=== PATIENT | female | born 1960 | race Caucasian/White ===

== ENCOUNTER 2016-11-30 08:39 | Emergency (ER) | payer BC, OTHER ==
[~2016-11-30] VITALS: Ht 180.3 cm; Wt 116.5 kg
[~2016-11-30 08:39] MED LIST: LANTUS2P SQ; LEVO.1 PO; LISI-360 PO; NOVOLOGP2 SQ
[2016-11-30 08:45] VITALS: BP 139/73; PULSE 75; RESP 16; TEMP 98.6; O2SAT 98
[2016-11-30] MEDS ORDERED: SODIUM CHLORIDE 0.9% FLUSH 10 ML FLUSH IVF PRN (09:00)
[2016-11-30] MEDS ORDERED: SODIUM CHLOR 0.9% 1000 ML INJ 1,000 ML IV ONE (09:00)
[2016-11-30 09:03] VITALS: O2SAT 97
--- NOTE | 2016-11-30 09:32 | RADHPO ---
EXAM DATE/TIME: 11/30/2016 09:10 [facility] COMPARISON: CHEST SINGLE AP, March 06, 2015, 22:30. INDICATIONS : Short of breath, left arm/hand numbness. MEDICAL HISTORY : Hypertension. Myocardial infarction. Diabetes mellitus type II. Thyriod disease. TIA. Sleep apnea . SURGICAL HISTORY : Tonsillectomy. Cholecystectomy. Cardiac cath. Bilateral rotator cuff . ENCOUNTER: Initial ACUITY: 1 day PAIN SCORE: 0/10 LOCATION: chest FINDINGS: A single view of the chest demonstrates the lungs to be symmetrically aerated without evidence of mas s, infiltrate or effusion. The cardiomediastinal contours are unremarkable. Osseous structures are intact. CONCLUSION: No acute disease. Stephen Elizabeth Jr., MD on November 30, 2016 at 9:30 Board Certified Radiologist. This report was verified electronically.
[2016-11-30 09:52] LABS: AUTOMATED NEUTROPHIL # 3.6 TH/MM3 (1.8-7.7); BASOPHIL # 0.2 TH/MM3 (0-0.2); BASOPHIL % 2.7 % (0.0-2.0); EOSINOPHIL # 0.2 TH/MM3 (0-0.4); EOSINOPHIL % 3.2 % (0.0-4.0); HEMATOCRIT 38.7 % (35.0-46.0); HEMO FLAGS DIFF FINAL; LYMPH % 33.3 % (9.0-44.0); LYMPHOCYTE # 2.3 TH/MM3 (1.0-4.8); MEAN CELL VOLUME 79.4 FL (80.0-100.0); MEAN CORPUSCULAR HEMOGLOBIN 26.8 PG (27.0-34.0); MEAN CORPUSCULAR HGB CONC 33.8 % (32.0-36.0); MONO % 7.1 % (0.0-8.0); NEUT % 53.7 % (16.0-70.0); PLATELET COUNT 276 TH/MM3 (150-450); RED BLOOD COUNT 4.87 MIL/MM3 (4.00-5.30); RED CELL DISTRIBUTION WIDTH 12.8 % (11.6-17.2); WHITE BLOOD COUNT 6.8 TH/MM3 (4.0-11.0)
[2016-11-30 09:59] LABS: CHLORIDE 103 MEQ/L (98-107); POTASSIUM 4.1 MEQ/L (3.5-5.1); SODIUM (NA) 139 MEQ/L (136-145)
[2016-11-30 10:01] LABS: BLOOD, URINE NEG (NEG); GLUCOSE,URINE NEG (NEG); KETONE, URINE NEG (NEG); NITRITE,URINE NEG (NEG); PH, URINE 5.5 (5.0-8.5)
[2016-11-30 10:02] LABS: ANION GAP 6 MEQ/L (5-15); BICARBONATE 29.9 MEQ/L (21.0-32.0); BLOOD UREA NITROGEN 12 MG/DL (7-18)
[2016-11-30 10:03] LABS: APTT (PATIENT) 25.5 SEC (24.3-30.1); INTERNATIONAL NORMALIZED RATIO 0.9 RATIO; PROTHROMBIN TIME - PATIENT 10.2 SEC (9.8-11.6)
[2016-11-30 10:05] LABS: COMMENT (UR) CULT NOT INDICATED; CULTURE IF INDICATED CULT NOT INDICATED; METHOD OF COLLECTION CLEAN CATCH; SQUAMOUS EPITHELIAL CELL URINE 0-5 /hpf (0-5); URINE COLOR YELLOW (YELLW/STRAW); WBC, URINE 0-2 /hpf (0-5)
[2016-11-30 10:05] LABS: ALT (GPT) 22 U/L (10-53); GLOMERULAR FILTRATION RATE 72 ML/MIN (>89)
[2016-11-30 10:06] LABS: AST (GOT) 11 U/L (15-37); TOTAL BILIRUBIN ADULT 0.5 MG/DL (0.2-1.0)
[2016-11-30 10:08] LABS: ALKALINE PHOSPHATASE 52 U/L (45-117)
[2016-11-30 10:12] LABS: CREATINE KINASE 72 U/L (26-192)
[2016-11-30 10:26] VITALS: BP 140/80; PULSE 88; RESP 16; O2SAT 100
--- NOTE | 2016-11-30 10:57 | RADHPO ---
EXAM DATE/TIME: 11/30/2016 10:27 [facility] COMPARISON: No previous studies available for comparison. INDICATIONS : Cephalgia. Dizziness. Left arm numbness. Weakness. RADIATION DOSE: 67.43 CTDIvol (mGy) MEDICAL HISTORY : Cerebrovascular disease. Diabetes mellitus type 2. Myocardial infarction. SURGICAL HISTORY : Cholecystectomy. ENCOUNTER: Initial ACUITY: 1 day PAIN SCALE: 9/10 LOCATION: cranial TECHNIQUE: Multiple contiguous axial images were obtained of the head. Using automated exposure control and adj ustment of the mA and/or kV according to patient size, radiation dose was kept as low as reasonably a chievable to obtain optimal diagnostic quality images. FINDINGS: CEREBRUM: The ventricles are normal for age. No evidence of midline shift, mass lesion, hemorrhage or acute in farction. No extra-axial fluid collections are seen. POSTERIOR FOSSA: The cerebellum and brainstem are intact. The 4th ventricle is midline. The cerebellopontine angle i s unremarkable. EXTRACRANIAL: The visualized portion of the orbits is intact. SKULL: The calvaria is intact. No evidence of skull fracture. CONCLUSION: 1. No acute intracranial abnormality identified. Kevin Hdz MD on November 30, 2016 at 10:45 Board Certified Radiologist. This report was verified electronically.
[2016-11-30] MEDS ORDERED: ONDANSETRON HCL 4 MG/2 ML VIAL IV PUSH ONE (11:00)
[2016-11-30 11:06] VITALS: BP 136/76; PULSE 65; RESP 16; O2SAT 99
[2016-11-30] MEDS ORDERED: IOHEXOL 350 MG/ML 10 ML VIAL (for RAD DIAG) IV ONE (11:31)
--- NOTE | 2016-11-30 12:22 | RADHPO ---
EXAM DATE/TIME: 11/30/2016 11:01 [facility] COMPARISON: No previous studies available for comparison. INDICATIONS : Nausea, left flank pain and left arm numbness. IV CONTRAST: 90 cc Omnipaque 350 (iohexol) IV RADIATION DOSE: 23.08 CTDIvol (mGy) MEDICAL HISTORY : Hypertension. Diabetes mellitus type 2. SURGICAL HISTORY : Cholecystectomy. ENCOUNTER: Initial ACUITY: 1 day PAIN SCALE: 5/10 LOCATION: Left flank TECHNIQUE: Volumetric scanning was performed using a multi-row detector CT scanner. The data was post processed with a variety of visualization algorithms including full volume maximum intensity projection, multi -planar sliding thin slab reformation, curved planar reformation, and surface rendering techniques. Using automated exposure control and adjustment of the mA and/or kV according to patient size, radiat ion dose was kept as low as reasonably achievable to obtain optimal diagnostic quality images. FINDINGS: The lungs are clear. There is good visualization of the ascending and the descending aorta. There is mild dilatation of t he ascending aorta without dissection. There are no significant coronary calcifications. Descending aorta is unremarkable. There is symmetrical renal function. Abdominal aorta appears normal without dissection. Review of source data reveals a small enhancing mass in the dome of the liver measuring less than 1 c m that could be an incidental hemangioma. I have no prior studies for comparison. Spleen, pancreas, adrenals and kidneys are unremarkable. CONCLUSION: 1. There is no evidence for a dissection. 2. Small less than 1 cm enhancing mass dome of liver probably hemangioma. This needs a follow-up. F ollow up would be a CT scan without and with contrast in three months. Jarred Hdz MD FACR on November 30, 2016 at 11:46 Board Certified Radiologist. This report was verified electronically.
[2016-11-30 12:48] VITALS: BP 136/77; PULSE 68; RESP 16; O2SAT 100
--- NOTE | 2016-11-30 12:59 | PD ---
HPI Chief Complaint: GI Complaint Time Seen by Provider: 08:50 Travel History International Travel<30 days: No Contact w/Intl Traveler<30days: No Traveled to known affect area: No History of Present Illness HPI Patient is a 55-year-old female with history of diabetes and hypothyroidism with multiple complaints. Reports that she has not been feeling well since yesterday afternoon, reports that her left flank has been hurting her, reports that her left hand and arm feel funny, she reports that "i don't know, I just feel weird." Patient denies any fevers or chills, reports that she feels a little dizzy, denies any vision changes, or any headaches. Patient denies any chest pain or shortness of breath. Patient denies abdominal pain, denies dysuria, hematuria, urinary urgency or frequency. Patient with no recent travels or trips, reports, "i just don't feel good." PFSH Past Medical History Cancer: No Cardiovascular Problems: No Chest Pain: Yes Diabetes: Yes (Type 2) Patient Takes Glucophage: No Diminished Hearing: No Endocrine: Yes Genitourinary: No Headaches: Yes (massive headache for 5 days last year ? TIA) Hypertension: Yes Musculoskeletal: Yes Neurologic: No Psychiatric: No Reproductive: No Respiratory: No Immunizations Current: Yes Sleep Apnea: Yes Thyroid Disease: Yes Tetanus Vaccination: Unknown ?: Not Menopausal: Yes Past Surgical History Abdominal Surgery: Yes (gallbladder out last year) Cholecystectomy: Yes Oral Surgery: Yes (T&A) Pacemaker: No Tonsillectomy: Yes Other Surgery: Yes Social History Alcohol Use: No Tobacco Use: No Substance Use: No Allergies-Medications (Allergen,Severity, Reaction): Coded Allergies: *MDRO Multi-Drug Resistant Organism (Verified Allergy, Unknown, 11/30/16) Uncoded Allergies: ADHEVIE "SURGICAL " TAPE (Allergy, Intermediate, RASH,ITCHING,SKIN IRRITATION, 06/07/12) Reported Meds & Prescriptions Reported Meds & Active Scripts Active Reported Lantus (Insulin Glargine) 100 Units/Ml Inj 24 Unit SQ HS Synthroid 100 mcg (Levothyroxine Sodium) 100 Mcg Tab 112 Mcg PO DAILY Lisinopril 10 mg (Lisinopril) 10 Mg Tab 10 Mg PO DAILY Novolog (Insulin Aspart) 100 Units/Ml Inj 10 Units SQ TIDAC Sliding Scale As Directed. Review of Systems General / Constitutional: No: Fever Eyes: No: Visual changes HENT: No: Headaches Cardiovascular: No: Chest Pain or Discomfort Respiratory: No: Shortness of Breath Gastrointestinal: Positive: Abdominal Pain, Other (left-sided flank pain) Genitourinary: No: Urgency, Dysuria Musculoskeletal: No: Pain Skin: No Rash Neurologic: Positive: Weakness, Dizziness, Paresthesia Psychiatric: No: Depression Endocrine: No: Polydipsia Hematologic/Lymphatic: No: Easy Bruising Physical Exam Narrative GENERAL: nad, nontoxic SKIN: Focused skin assessment warm/dry. HEAD: Atraumatic. Normocephalic. EYES: Pupils equal and round. No scleral icterus. No injection or drainage. ENT: No nasal bleeding or discharge. Mucous membranes pink and moist. NECK: Trachea midline. No JVD. CARDIOVASCULAR: Regular rate and rhythm. No murmur appreciated. RESPIRATORY: No accessory muscle use. Clear to auscultation. Breath sounds equal bilaterally. GASTROINTESTINAL: Abdomen soft, non-tender, nondistended. Hepatic and splenic margins not palpable. MUSCULOSKELETAL: No obvious deformities. No clubbing. No cyanosis. No edema. NEUROLOGICAL: Awake and alert. No obvious cranial nerve deficits. Motor grossly within normal limits. Normal speech. CN 2-12 grossly intact with no neurological deficits PSYCHIATRIC: Appropriate mood and affect; insight and judgment normal. Data Data Last Documented VS Vital Signs Date Time Temp Pulse Resp B/P Pulse Ox O2 Delivery O2 Flow Rate FiO2 11/30/16 12:48 68 16 136/77 100 Room Air 11/30/16 08:45 98.6 Orders Electrocardiogram (11/30/16 08:57) Prothrombin Time / Inr (Pt) (11/30/16 08:57) Act Partial Throm Time (Ptt) (11/30/16 08:57) Complete Blood Count With Diff (11/30/16 08:57) Comprehensive Metabolic Panel (11/30/16 08:57) Creatine Kinase (Cpk) (11/30/16 08:57) Troponin I (11/30/16 08:57) Urinalysis - C+S If Indicated (11/30/16 08:57) Ct Brain W/O Iv Contrast(Rout) (11/30/16 08:57) Chest, Single Ap (11/30/16 08:57) Ecg Monitoring (11/30/16 08:57) Iv Access Insert/Monitor (11/30/16 08:57) Oximetry (11/30/16 08:57) Blood Glucose (11/30/16 08:57) Sodium Chloride 0.9% Flush (Ns Flush) (11/30/16 09:00) Sodium Chlor 0.9% 1000 Ml Inj (Ns 1000 M (11/30/16 09:00) Cta Thor Abd Aorta W Iv C W3d (11/30/16 10:21) Ondansetron Inj (Zofran Inj) (11/30/16 11:00) Iohexol 350 Inj (Omnipaque 350 Inj) (11/30/16 11:31) Electrocardiogram (11/30/16 ) Labs Laboratory Tests Test 11/30/16 11/30/16 09:25 09:44 Urine Collection Type CLEAN CATCH Urine Color YELLOW Urine Turbidity CLEAR Urine pH 5.5 Urine Specific [place] 1.013 Urine Protein NEG mg/dL Urine Glucose (UA) NEG mg/dL Urine Ketones NEG mg/dL Urine Occult Blood NEG Urine Nitrite NEG Urine Bilirubin NEG Urine Leukocyte Esterase NEG Urine WBC 0-2 /hpf Urine Squamous Epithelial 0-5 /hpf Cells Microscopic Urinalysis Comment CULT NOT INDICATED Urine Collection Time 09:25 White Blood Count 6.8 TH/MM3 Red Blood Count 4.87 MIL/MM3 Hemoglobin 13.1 GM/DL Hematocrit 38.7 % Mean Corpuscular Volume 79.4 FL Mean Corpuscular Hemoglobin 26.8 PG Mean Corpuscular Hemoglobin 33.8 % Concent Red Cell Distribution Width 12.8 % Platelet Count 276 TH/MM3 Mean Platelet Volume 7.9 FL Neutrophils (%) (Auto) 53.7 % Lymphocytes (%) (Auto) 33.3 % Monocytes (%) (Auto) 7.1 % Eosinophils (%) (Auto) 3.2 % Basophils (%) (Auto) 2.7 % Neutrophils # (Auto) 3.6 TH/MM3 Lymphocytes # (Auto) 2.3 TH/MM3 Monocytes # (Auto) 0.5 TH/MM3 Eosinophils # (Auto) 0.2 TH/MM3 Basophils # (Auto) 0.2 TH/MM3 CBC Comment DIFF FINAL Differential Comment Prothrombin Time 10.2 SEC Prothromb Time International 0.9 RATIO Ratio Activated Partial 25.5 SEC Thromboplast Time Sodium Level 139 MEQ/L Potassium Level 4.1 MEQ/L Chloride Level 103 MEQ/L Carbon Dioxide Level 29.9 MEQ/L Anion Gap 6 MEQ/L Blood Urea Nitrogen 12 MG/DL Creatinine 0.82 MG/DL Estimat Glomerular Filtration 72 ML/MIN Rate Random Glucose 196 MG/DL Calcium Level 8.6 MG/DL Total Bilirubin 0.5 MG/DL Aspartate Amino Transf 11 U/L (AST/SGOT) Alanine Aminotransferase 22 U/L (ALT/SGPT) Alkaline Phosphatase 52 U/L Total Creatine Kinase 72 U/L Troponin I LESS THAN 0.02 NG/ML Total Protein 6.5 GM/DL Albumin 3.3 GM/DL MDM Medical Decision Making Medical Screen Exam Complete: Yes Emergency Medical Condition: Yes Interpretation(s) EKG at 0856: Normal sinus rhythm at 71 beats for minute, QT/QTc 406/425, no acute ST or T-wave changes Vital Signs Date Time Temp Pulse Resp B/P Pulse Ox O2 Delivery O2 Flow Rate FiO2 11/30/16 12:48 68 16 136/77 100 Room Air 11/30/16 11:06 65 16 136/76 99 Room Air 11/30/16 10:26 88 16 140/80 100 Room Air 11/30/16 09:03 97 Room Air 11/30/16 08:52 16 11/30/16 08:45 98.6 75 16 139/73 98 Laboratory Tests Test 11/30/16 11/30/16 09:25 09:44 Urine Collection Type CLEAN CATCH Urine Color YELLOW (YELLW/STRAW) Urine Turbidity CLEAR (CLEAR) Urine pH 5.5 (5.0-8.5) Urine Specific [place] 1.013 (1.002-1.035) Urine Protein NEG mg/dL (NEG-TRACE) Urine Glucose (UA) NEG mg/dL (NEG) Urine Ketones NEG mg/dL (NEG) Urine Occult Blood NEG (NEG) Urine Nitrite NEG (NEG) Urine Bilirubin NEG (NEG) Urine Leukocyte Esterase NEG (NEG) Urine WBC 0-2 /hpf (0-5) Urine Squamous Epithelial 0-5 /hpf (0-5) Cells Microscopic Urinalysis Comment CULT NOT INDICATED Urine Collection Time 09:25 White Blood Count 6.8 TH/MM3 (4.0-11.0) Red Blood Count 4.87 MIL/MM3 (4.00-5.30) Hemoglobin 13.1 GM/DL (11.6-15.3) Hematocrit 38.7 % (35.0-46.0) Mean Corpuscular Volume 79.4 FL (80.0-100.0) Mean Corpuscular Hemoglobin 26.8 PG (27.0-34.0) Mean Corpuscular Hemoglobin 33.8 % Concent (32.0-36.0) Red Cell Distribution Width 12.8 % (11.6-17.2) Platelet Count 276 TH/MM3 (150-450) Mean Platelet Volume 7.9 FL (7.0-11.0) Neutrophils (%) (Auto) 53.7 % (16.0-70.0) Lymphocytes (%) (Auto) 33.3 % (9.0-44.0) Monocytes (%) (Auto) 7.1 % (0.0-8.0) Eosinophils (%) (Auto) 3.2 % (0.0-4.0) Basophils (%) (Auto) 2.7 % (0.0-2.0) Neutrophils # (Auto) 3.6 TH/MM3 (1.8-7.7) Lymphocytes # (Auto) 2.3 TH/MM3 (1.0-4.8) Monocytes # (Auto) 0.5 TH/MM3 (0-0.9) Eosinophils # (Auto) 0.2 TH/MM3 (0-0.4) Basophils # (Auto) 0.2 TH/MM3 (0-0.2) CBC Comment DIFF FINAL Differential Comment Prothrombin Time 10.2 SEC (9.8-11.6) Prothromb Time International 0.9 RATIO Ratio Activated Partial 25.5 SEC Thromboplast Time (24.3-30.1) Sodium Level 139 MEQ/L (136-145) Potassium Level 4.1 MEQ/L (3.5-5.1) Chloride Level 103 MEQ/L (98-107) Carbon Dioxide Level 29.9 MEQ/L (21.0-32.0) Anion Gap 6 MEQ/L (5-15) Blood Urea Nitrogen 12 MG/DL (7-18) Creatinine 0.82 MG/DL (0.50-1.00) Estimat Glomerular Filtration 72 ML/MIN (>89) Rate Random Glucose 196 MG/DL (74-106) Calcium Level 8.6 MG/DL (8.5-10.1) Total Bilirubin 0.5 MG/DL (0.2-1.0) Aspartate Amino Transf 11 U/L (15-37) (AST/SGOT) Alanine Aminotransferase 22 U/L (10-53) (ALT/SGPT) Alkaline Phosphatase 52 U/L (45-117) Total Creatine Kinase 72 U/L (26-192) Troponin I LESS THAN 0.02 NG/ML (0.02-0.05) Total Protein 6.5 GM/DL (6.4-8.2) Albumin 3.3 GM/DL (3.4-5.0) Last Impressions Head CT 11/30/16856 Signed Impressions: Service Date/Time: Wednesday, November 30, 2016 10:27 - CONCLUSION: 1. No acute intracranial abnormality identified. Kevin Hdz MD Chest X-Ray 11/30/16856 Signed Impressions: Service Date/Time: Wednesday, November 30, 2016 09:10 - CONCLUSION: No acute disease. Stephen Elizabeth Jr., MD Differential Diagnosis Electrolyte abnormality, ACS, TIA, CVA, kidney stone, aortic dissection Narrative Course Patient is a 55-year-old female who presents to emergency room with complaints of not feeling well today. Reports feeling a little lightheaded and dizzy, reports paresthesias to her left hand, she also has been having some flank pain which radiates to her shoulder and her left scapula. Patient reports that symptoms began yesterday afternoon and has continued, reports that she has never had the symptoms in the past. Vital signs have been stable throughout her ER visit, labs are benign as well as her CT studies. Overall, her studies have been benign. Plan to discharge patient to home with outpatient follow-up for further workup of her symptoms. Signs and symptoms of when to return to the emergency room was reviewed patient in detail. Diagnosis Primary Impression: Arm paresthesia, left Additional Impression: Flank pain Patient Instructions: General Instructions Additional Instructions: Please provide patient with a copy of her lab work and studies at discharge Please follow up your primary care doctor and 1-2 days Return to emergency room if symptoms worsen or progress or return Return to the emergency room as needed Disposition: 01 DISCHARGE HOME Condition: Stable Meka Mitchell DO Nov 30, 2016 12:59
--- NOTE | 2016-11-30 14:48 | EKG ---
Date Performed: 11/30/2016 Time Performed: 08:56:24 PTAGE: 55 years EKG: Sinus rhythm Normal ECG PREVIOUS TRACING : 03/06/2015 22.30 Compared to the previous tracing, non-specific changes not noted DOCTOR: Jayson Valentin Interpretating Date/Time 11/30/2016 14:46:14
--- NOTE | 2016-12-01 13:55 | EKG ---
Date Performed: 11/30/2016 Time Performed: 12:59:40 PTAGE: 55 years EKG: Sinus rhythm Inferior T wave changes are nonspecific Borderline ECG PREVIOUS TRACING : 11/30/2016 08.56 Since previous tracing, no significant change noted DOCTOR: Trey Plasencia Interpretating Date/Time 12/01/2016 13:54:33
== END 2016-11-30 13:27 | disposition home or self-care (01) ==
LOC: PHED 08:39
DX: R20.2 Paresthesia of skin (principal); R10.9 Unspecified abdominal pain; R42 Dizziness and giddiness; R06.02 Shortness of breath; E03.9 Hypothyroidism, unspecified; E11.9 Type 2 diabetes mellitus without complications; I10 Essential (primary) hypertension; Z79.4 Long term (current) use of insulin; Z79.899 Other long term (current) drug therapy
CPT/HCPCS: 70450; 71010; 71275; 74174; 80053; 81001; 82550; 84484; 85025; 85610; 85730; 93005; 96361; 96374; 99285; J2405; J7030; Q9967

== ENCOUNTER 2017-02-13 17:11 | Emergency (ER) | payer OTHER ==
[~2017-02-13] VITALS: Ht 180.3 cm; Wt 110.0 kg
[2017-02-13 17:18] VITALS: BP 145/81; PULSE 70; RESP 16; TEMP 98.1; O2SAT 98
[2017-02-13] MEDS ORDERED: NOVALOG (17:27)
[2017-02-13] MEDS ORDERED: PERC7.5T13 PO (18:07)
--- NOTE | 2017-02-13 18:08 | PD ---
HPI Chief Complaint: Skin Problem Time Seen by Provider: 18:03 Travel History International Travel<30 days: No Contact w/Intl Traveler<30days: No Traveled to known affect area: No History of Present Illness HPI This 56-year-old female is complaining of painful rash. Last Monday she went to the [facility] emergency room. She had a spot on the back of her neck and one on the front of her chest. He was diagnosed with herpes zoster and started on Valtrex. She has been taking the Valtrex. She says the rash has spread and is painful. He does have a history of diabetes and her blood sugars have been elevated. PFSH Past Medical History Cancer: No Cardiovascular Problems: No Chest Pain: Yes Diabetes: Yes (Type 2) Patient Takes Glucophage: No Diminished Hearing: No Endocrine: Yes Genitourinary: No Headaches: Yes (massive headache for 5 days last year ? TIA) Hypertension: Yes Musculoskeletal: Yes Neurologic: No Psychiatric: No Reproductive: No Respiratory: No Immunizations Current: Yes Sleep Apnea: Yes Thyroid Disease: Yes Menopausal: Yes Past Surgical History Abdominal Surgery: Yes (gallbladder out last year) Cholecystectomy: Yes Oral Surgery: Yes (T&A) Pacemaker: No Tonsillectomy: Yes Other Surgery: Yes Social History Alcohol Use: No Tobacco Use: No Substance Use: No Allergies-Medications (Allergen,Severity, Reaction): Coded Allergies: *MDRO Multi-Drug Resistant Organism (Verified Allergy, Unknown, 02/13/17) Uncoded Allergies: ADHEVIE "SURGICAL " TAPE (Allergy, Intermediate, RASH,ITCHING,SKIN IRRITATION, 06/07/12) Reported Meds & Prescriptions Reported Meds & Active Scripts Active Reported [Novalog] Review of Systems General / Constitutional: No: Fever, Chills Eyes: No: Diploplia, Blurred Vision HENT: No: Headaches, Vertigo Cardiovascular: No: Chest Pain or Discomfort, Palpitations Respiratory: No: Cough, Shortness of Breath Gastrointestinal: No: Nausea, Vomiting Genitourinary: No: Urgency, Frequency Musculoskeletal: Positive: Pain Skin: Positive Rash Physical Exam Narrative GENERAL: Well developed female SKIN: Focused skin assessment warm/dry. There are patches of a erythematous rash with vesicular lesions on the right side of the upper chest anteriorly and posteriorly and also overlying the jaw on the right side of the face. The TMs are negative. Pupils are round and reactive and there is no conjunctival injection. HEAD: Atraumatic. Normocephalic. EYES: Pupils equal and round. No scleral icterus. No injection or drainage. ENT: No nasal bleeding or discharge. Mucous membranes pink and moist. NECK: Trachea midline. No JVD. CARDIOVASCULAR: Regular rate and rhythm. No murmur appreciated. RESPIRATORY: No accessory muscle use. Clear to auscultation. Breath sounds equal bilaterally. GASTROINTESTINAL: Abdomen soft, non-tender, nondistended. Hepatic and splenic margins not palpable. MUSCULOSKELETAL: No obvious deformities. No clubbing. No cyanosis. No edema. NEUROLOGICAL: Awake and alert. No obvious cranial nerve deficits. Motor grossly within normal limits. Normal speech. PSYCHIATRIC: Appropriate mood and affect; insight and judgment normal. Data Data Last Documented VS Vital Signs Date Time Temp Pulse Resp B/P (MAP) Pulse Ox O2 Delivery O2 Flow Rate FiO2 02/13/17 17:18 98.1 70 16 145/81 (102) 98 MDM Medical Decision Making Medical Screen Exam Complete: Yes Emergency Medical Condition: Yes Medical Record Reviewed: Yes Differential Diagnosis Differential includes shingles Narrative Course Rash is consistent with herpes zoster. The patient is having pain. She has not been able to take Lortab because it keeps her awake. I will write some Percocet and see if that helps. He is stable for discharge Diagnosis Primary Impression: Herpes zoster Qualified Codes: B02.9 - Zoster without complications Scripts Oxycodone-Acetaminophen (Percocet) 7.5-325 mg Tab 1 TAB PO Q4H Y for PAIN for 30 Days, TAB 0 Refills Prov: Moe Gonzalez MD 02/13/17 Disposition: 01 DISCHARGE HOME Condition: Stable Moe Gonzalez MD Feb 13, 2017 18:08
== END 2017-02-13 18:33 | disposition home or self-care (01) ==
LOC: PHEFT 17:11
DX: B02.9 Zoster without complications (principal)
CPT/HCPCS: 99283

== ENCOUNTER 2017-04-30 10:41 | Emergency (ER) | payer OTHER ==
[~2017-04-30] VITALS: Ht 180.3 cm; Wt 108.0 kg
[~2017-04-30 10:41] MED LIST changes: -LANTUS2P SQ; -LEVO.1 PO; -LISI-360 PO; +NOVALOG; -NOVOLOGP2 SQ; +PERC7.5T13 PO
[2017-04-30 10:44] VITALS: BP 157/106; PULSE 85; RESP 14; TEMP 98.1; O2SAT 97
[2017-04-30] MEDS ORDERED: SODIUM CHLORIDE 0.9% FLUSH 10 ML FLUSH IVF PRN (11:00)
[2017-04-30] MEDS ORDERED: ONDANSETRON HCL 4 MG/2 ML VIAL IV PUSH ONE (11:00)
[2017-04-30] MEDS ORDERED: SODIUM CHLOR 0.9% 1000 ML INJ 1,000 ML IV SCH (11:00)
--- NOTE | 2017-04-30 11:07 | PD ---
HPI Chief Complaint: Fall Time Seen by Provider: 10:55 Travel History International Travel<30 days: No Contact w/Intl Traveler<30days: No Traveled to known affect area: No History of Present Illness HPI Patient is a 56-year-old female who presents to emergency room after she fell at work on Monday. She reports that she tripped on a piece of cardboard which was on the ground, reports that she fell forward hitting her head on a table, while in the process of falling, she tried to protect her teeth and she ended up twisting her body and hurt her left lower back, right hip and her right shoulder. Patient reports no loss of consciousness, reports that she currently is not on any anticoagulants. Patient reports that she vomited 30 minutes after her fall, reports that she vomited another 2 times after she fell on Monday. Patient reports that her head feels "cloudy." Reports that she still feels nauseous. Patient reports pain to her right shoulder, right hip and right lower back. Patient with no chest pain or abdominal pain at this time, reports diffuse bruising throughout her body after her fall. PFSH Past Medical History Cancer: No Cardiovascular Problems: No Chest Pain: Yes Diabetes: Yes (TYPE 2) Diminished Hearing: No Endocrine: Yes Genitourinary: No Headaches: Yes (massive headache for 5 days last year ? TIA) Hypertension: Yes Musculoskeletal: Yes Neurologic: No Psychiatric: No Reproductive: No Respiratory: No Immunizations Current: Yes Sleep Apnea: Yes Thyroid Disease: Yes Menopausal: Yes Past Surgical History Abdominal Surgery: Yes (gallbladder out last year) Cholecystectomy: Yes Oral Surgery: Yes (T&A) Pacemaker: No Tonsillectomy: Yes Other Surgery: Yes Social History Alcohol Use: No Tobacco Use: No Substance Use: No Allergies-Medications (Allergen,Severity, Reaction): Coded Allergies: morphine (Verified Allergy, Severe, Hives, 04/30/17) *MDRO Multi-Drug Resistant Organism (Verified Allergy, Unknown, 02/13/17) Uncoded Allergies: ADHEVIE "SURGICAL " TAPE (Allergy, Intermediate, RASH,ITCHING,SKIN IRRITATION, 06/07/12) Reported Meds & Prescriptions Reported Meds & Active Scripts Active Metformin (Metformin HCl) 500 Mg Tab 500 Mg PO BIDPC Reported Vitamin C (Ascorbic Acid) 250 Mg Chew 250 Mg CHEW DAILY Multiple Vitamin 1 Tab 1 Tab PO DAILY Review of Systems General / Constitutional: No: Fever Eyes: No: Visual changes HENT: Positive: Headaches, Lightheadedness, Neck Pain Cardiovascular: No: Chest Pain or Discomfort Respiratory: No: Shortness of Breath Gastrointestinal: No: Abdominal Pain Genitourinary: No: Dysuria Musculoskeletal: Positive: Arthralgias, Limited ROM, Cramping, Pain (right shoulder pain, right hip pain, left lower back pain) Skin: No Rash Neurologic: No: Weakness Psychiatric: No: Depression Endocrine: No: Polydipsia Hematologic/Lymphatic: No: Easy Bruising Physical Exam Narrative GENERAL: Mild distress SKIN: Focused skin assessment warm/dry. HEAD: Atraumatic. Normocephalic. EYES: Pupils equal and round. No scleral icterus. No injection or drainage. ENT: No nasal bleeding or discharge. Mucous membranes pink and moist. NECK: Trachea midline. No JVD. Patient with paraspinal cervical tenderness CARDIOVASCULAR: Regular rate and rhythm. No murmur appreciated. RESPIRATORY: No accessory muscle use. Clear to auscultation. Breath sounds equal bilaterally. GASTROINTESTINAL: Abdomen soft, non-tender, nondistended. Hepatic and splenic margins not palpable. MUSCULOSKELETAL: No obvious deformities. No clubbing. No cyanosis. No edema. Patient with no midline thoracic or lumbar tenderness, patient does have bruising to her left lower back, pain with range of motion to the right shoulder with no obvious deformities or open fractures, pulses intact, neurovascularly intact. Left upper extremity: Normal exam, patient with pain to the right hip, normal range of motion - pulses intact, neurovascularly intact. Patient with normal range of motion to the left hip, no obvious deformities. NEUROLOGICAL: Awake and alert. No obvious cranial nerve deficits. Motor grossly within normal limits. Normal speech. PSYCHIATRIC: Appropriate mood and affect; insight and judgment normal. Data Data Last Documented VS Vital Signs Date Time Temp Pulse Resp B/P (MAP) Pulse Ox O2 Delivery O2 Flow Rate FiO2 04/30/17 10:58 16 100 Room Air 04/30/17 10:44 98.1 85 157/106 (123) Orders Orders Basic Metabolic Panel (Bmp) (04/30/17 11:00) Complete Blood Count With Diff (04/30/17 11:00) Prothrombin Time / Inr (Pt) (04/30/17 11:00) Act Partial Throm Time (Ptt) (04/30/17 11:00) Ct Brain W/O Iv Contrast(Rout) (04/30/17 11:00) Ct Cerv Spine W/O Contrast (04/30/17 11:00) Ct Abd/Pel W Iv Contrast(Rout) (04/30/17 11:00) Ct Thorax/ Chest W Iv Contrast (04/30/17 11:00) Iv Access Insert/Monitor (04/30/17 11:00) Ecg Monitoring (04/30/17 11:00) Ondansetron Inj (Zofran Inj) (04/30/17 11:00) Sodium Chlor 0.9% 1000 Ml Inj (Ns 1000 M (04/30/17 11:00) Sodium Chloride 0.9% Flush (Ns Flush) (04/30/17 11:00) Shoulder, Complete (>2vws) (04/30/17 ) Hip, Uni(Ap&Lat) Wo Ap Pelvis (04/30/17 ) Sodium Chlor 0.9% 1000 Ml Inj (Ns 1000 M (04/30/17 12:15) Insulin Human Regular Inj (Novolin R Inj (04/30/17 12:15) Blood Glucose (04/30/17 12:27) Blood Glucose (04/30/17 12:57) Iohexol 350 Inj (Omnipaque 350 Inj) (04/30/17 12:44) Ketorolac Inj (Toradol Inj) (04/30/17 13:15) Labs Laboratory Tests Test 04/30/17 11:23 White Blood Count 6.5 TH/MM3 Red Blood Count 5.18 MIL/MM3 Hemoglobin 14.2 GM/DL Hematocrit 42.5 % Mean Corpuscular Volume 82.1 FL Mean Corpuscular Hemoglobin 27.4 PG Mean Corpuscular Hemoglobin Concent 33.4 % Red Cell Distribution Width 13.8 % Platelet Count 235 TH/MM3 Mean Platelet Volume 8.1 FL Neutrophils (%) (Auto) 47.9 % Lymphocytes (%) (Auto) 41.9 % Monocytes (%) (Auto) 6.9 % Eosinophils (%) (Auto) 2.5 % Basophils (%) (Auto) 0.8 % Neutrophils # (Auto) 3.1 TH/MM3 Lymphocytes # (Auto) 2.7 TH/MM3 Monocytes # (Auto) 0.5 TH/MM3 Eosinophils # (Auto) 0.2 TH/MM3 Basophils # (Auto) 0.1 TH/MM3 CBC Comment DIFF FINAL Differential Comment Prothrombin Time 10.0 SEC Prothromb Time International Ratio 0.9 RATIO Activated Partial Thromboplast Time 23.8 SEC Blood Urea Nitrogen 10 MG/DL Creatinine 0.87 MG/DL Random Glucose 409 MG/DL Calcium Level 8.9 MG/DL Sodium Level 135 MEQ/L Potassium Level 4.1 MEQ/L Chloride Level 99 MEQ/L Carbon Dioxide Level 28.7 MEQ/L Anion Gap 7 MEQ/L Estimat Glomerular Filtration Rate 67 ML/MIN MDM Medical Decision Making Medical Screen Exam Complete: Yes Emergency Medical Condition: Yes Medical Record Reviewed: Yes Interpretation(s) Vital Signs Date Time Temp Pulse Resp B/P (MAP) Pulse Ox O2 Delivery O2 Flow Rate FiO2 04/30/17 10:58 16 100 Room Air 04/30/17 10:44 98.1 85 14 157/106 (123 97 Differential Diagnosis Concussion, intracranial hemorrhage, cervical spine fracture, hematoma Narrative Course During the course of the patients emergency department visit, the patients history, examination, and differential diagnosis were reviewed with the patient. The patient was placed on a tawer with oximetry and frequent blood pressure monitoring. The patient had a 20-gauge IV access obtained and blood work sent for analysis. The patient was initially provided IV Zofran as well as IV fluids The patients laboratory studies were reviewed and remarkable for: Laboratory Tests Test 04/30/17 11:23 White Blood Count 6.5 TH/MM3 (4.0-11.0) Red Blood Count 5.18 MIL/MM3 (4.00-5.30) Hemoglobin 14.2 GM/DL (11.6-15.3) Hematocrit 42.5 % (35.0-46.0) Mean Corpuscular Volume 82.1 FL (80.0-100.0) Mean Corpuscular Hemoglobin 27.4 PG (27.0-34.0) Mean Corpuscular Hemoglobin Concent 33.4 % (32.0-36.0) Red Cell Distribution Width 13.8 % (11.6-17.2) Platelet Count 235 TH/MM3 (150-450) Mean Platelet Volume 8.1 FL (7.0-11.0) Neutrophils (%) (Auto) 47.9 % (16.0-70.0) Lymphocytes (%) (Auto) 41.9 % (9.0-44.0) Monocytes (%) (Auto) 6.9 % (0.0-8.0) Eosinophils (%) (Auto) 2.5 % (0.0-4.0) Basophils (%) (Auto) 0.8 % (0.0-2.0) Neutrophils # (Auto) 3.1 TH/MM3 (1.8-7.7) Lymphocytes # (Auto) 2.7 TH/MM3 (1.0-4.8) Monocytes # (Auto) 0.5 TH/MM3 (0-0.9) Eosinophils # (Auto) 0.2 TH/MM3 (0-0.4) Basophils # (Auto) 0.1 TH/MM3 (0-0.2) CBC Comment DIFF FINAL Differential Comment Prothrombin Time 10.0 SEC (9.8-11.6) Prothromb Time International Ratio 0.9 RATIO Activated Partial Thromboplast Time 23.8 SEC (24.3-30.1) Blood Urea Nitrogen 10 MG/DL (7-18) Creatinine 0.87 MG/DL (0.50-1.00) Random Glucose 409 MG/DL (74-106) Calcium Level 8.9 MG/DL (8.5-10.1) Sodium Level 135 MEQ/L (136-145) Potassium Level 4.1 MEQ/L (3.5-5.1) Chloride Level 99 MEQ/L (98-107) Carbon Dioxide Level 28.7 MEQ/L (21.0-32.0) Anion Gap 7 MEQ/L (5-15) Estimat Glomerular Filtration Rate 67 ML/MIN (>89) Glucose 409- patient reports history of diabetes in the past, patient reports that her pcp took her off of insulin and she is not on any diabetic medications at this time. Patient understands that her blood sugar 409, needs to be treated. IVF as well as insulin ordered. Patient will follow up with her pcp for hyperglycemia. She understands need for strict glucose monitoring Radiology studies were reviewed and remarkable for Last Impressions Shoulder X-Ray 04/30/17 0000 Signed Impressions: Service Date/Time: Sunday, April 30, 2017 11:11 - CONCLUSION: Unremarkable examination of the right shoulder. Yonis Pang MD Hip X-Ray 04/30/17 0000 Signed Impressions: Service Date/Time: Sunday, April 30, 2017 11:11 - CONCLUSION: Unremarkable examination of the right hip. Yonis Pang MD Last Impressions Head CT 04/30/17 1100 Signed Impressions: Service Date/Time: Sunday, April 30, 2017 12:18 - CONCLUSION: No bleed or other acute intracranial abnormality. Bilateral maxillary sinus disease. Rudy Shaw MD Chest CT 04/30/17 1100 Signed Impressions: Service Date/Time: Sunday, April 30, 2017 12:21 - CONCLUSION: Negative CT of the chest. Rudy Shaw MD Cervical Spine CT 04/30/17 1100 Signed Impressions: Service Date/Time: Sunday, April 30, 2017 12:18 - CONCLUSION: Normal examination. No acute fracture is seen Yonis Pang MD Abdomen/Pelvis CT 04/30/17 1100 Signed Impressions: Service Date/Time: Sunday, April 30, 2017 12:21 - CONCLUSION: Normal examination in a patient status post cholecystectomy. No etiology for abdominal pain is identified Yonis Pang MD Shoulder X-Ray 04/30/17 0000 Signed Impressions: Service Date/Time: Sunday, April 30, 2017 11:11 - CONCLUSION: Unremarkable examination of the right shoulder. Yonis Pang MD Hip X-Ray 04/30/17 0000 Signed Impressions: Service Date/Time: Sunday, April 30, 2017 11:11 - CONCLUSION: Unremarkable examination of the right hip. Yonis Pang MD Patient reevaluated, patient feeling much better at this time. I reviewed all labs and all studies with patient in detail including all incidental findings. Patient will follow-up with her primary care doctor for further treatment of her hyperglycemia. Repeat BS 301. Plan to start patient on metformin BID. A copy of her studies will be given to her at discharge Diagnosis Primary Impression: Concussion Qualified Codes: S06.0X0A - Concussion without loss of consciousness, initial encounter Additional Impressions: Head injury Qualified Codes: S09.90XA - Unspecified injury of head, initial encounter Bruising Hyperglycemia Patient Instructions: General Instructions Additional Instructions: Please provide patient with a copy of their lab work and studies at discharge* * Please follow up with your primary care doctor in 1-2 days Return to the ER if symptoms worsen or progress Return to the ER as needed Med/Other Pt SpecificInfo: Prescription(s) given Scripts Diazepam (Valium) 5 Mg Tab 5 MG PO HS Y for SPASM, #10 TAB 0 Refills Prov: Meka Mitchell DO 04/30/17 Metformin (Metformin) 500 Mg Tab 500 MG PO BIDPC for Blood Sugar Management, #60 TAB 0 Refills Prov: Meka Mitchell DO 04/30/17 Disposition: 01 DISCHARGE HOME Condition: Stable Meka Mitchell DO Apr 30, 2017 11:07
[2017-04-30] MEDS ORDERED: VITA250C3 CHEW (11:22)
[2017-04-30] MEDS ORDERED: MULTTAB67 PO (11:22)
--- NOTE | 2017-04-30 11:24 | RADRPT ---
EXAM DATE/TIME: 04/30/2017 11:11 [facility] COMPARISON: No previous studies available for comparison. INDICATIONS : Right shoulder pain, fell MEDICAL HISTORY : Diabetes mellitus type II. SURGICAL HISTORY : None. ENCOUNTER: Initial ACUITY: 3 days PAIN SCORE: 10/10 LOCATION: Right Shoulder FINDINGS: Multiple view examination of the right shoulder demonstrates no evidence of fracture or dislocation. The glenohumeral and acromioclavicular joints are maintained. There is normal range of motion betwe en internal and external rotation. Bony mineralization is normal. CONCLUSION: Unremarkable examination of the right shoulder. Yonis Pang MD on April 30, 2017 at 11:21 Board Certified Radiologist. This report was verified electronically.
--- NOTE | 2017-04-30 11:29 | RADRPT ---
EXAM DATE/TIME: 04/30/2017 11:11 [facility] COMPARISON: No previous studies available for comparison. INDICATIONS : Right hip pain, fell MEDICAL HISTORY : Diabetes mellitus type II. SURGICAL HISTORY : None. ENCOUNTER: Initial ACUITY: 3 days PAIN SCORE: 10/10 LOCATION: Right Hip FINDINGS: A two view examination of the right hip was performed. The primary and secondary trabecular pattern of the femoral neck is intact. The hip joint is of normal width without significant sclerosis or bon y hypertrophy. The acetabulum is grossly intact. CONCLUSION: Unremarkable examination of the right hip. Yonis Pang MD on April 30, 2017 at 11:26 Board Certified Radiologist. This report was verified electronically.
[2017-04-30 11:42] LABS: AUTOMATED NEUTROPHIL # 3.1 TH/MM3 (1.8-7.7); BASOPHIL # 0.1 TH/MM3 (0-0.2); BASOPHIL % 0.8 % (0.0-2.0); EOSINOPHIL # 0.2 TH/MM3 (0-0.4); EOSINOPHIL % 2.5 % (0.0-4.0); HEMATOCRIT 42.5 % (35.0-46.0); HEMO FLAGS DIFF FINAL; LYMPH % 41.9 % (9.0-44.0); LYMPHOCYTE # 2.7 TH/MM3 (1.0-4.8); MEAN CELL VOLUME 82.1 FL (80.0-100.0); MEAN CORPUSCULAR HEMOGLOBIN 27.4 PG (27.0-34.0); MEAN CORPUSCULAR HGB CONC 33.4 % (32.0-36.0); MONO % 6.9 % (0.0-8.0); NEUT % 47.9 % (16.0-70.0); PLATELET COUNT 235 TH/MM3 (150-450); RED BLOOD COUNT 5.18 MIL/MM3 (4.00-5.30); RED CELL DISTRIBUTION WIDTH 13.8 % (11.6-17.2); WHITE BLOOD COUNT 6.5 TH/MM3 (4.0-11.0)
[2017-04-30 11:47] LABS: APTT (PATIENT) 23.8 SEC (24.3-30.1); INTERNATIONAL NORMALIZED RATIO 0.9 RATIO
[2017-04-30 12:04] LABS: BICARBONATE 28.7 MEQ/L (21.0-32.0); POTASSIUM 4.1 MEQ/L (3.5-5.1)
[2017-04-30] MEDS ORDERED: INSULIN HUMAN REGULAR 1,000 UNITS/10 ML VIAL SQ ONE (12:15)
[2017-04-30] MEDS ORDERED: SODIUM CHLOR 0.9% 1000 ML INJ 1,000 ML IV ONE (12:15)
--- NOTE | 2017-04-30 12:42 | RADRPT ---
EXAM DATE/TIME: 04/30/2017 12:18 [facility] COMPARISON: CT BRAIN W/O CONTRAST, November 30, 2016, 10:27. INDICATIONS : Fell. RADIATION DOSE: 56.35 CTDIvol (mGy) MEDICAL HISTORY : Cardiovascular disease. Sleep apnea. TIA, MRSA 2012 SURGICAL HISTORY : Cholecystectomy. Heart cath. ENCOUNTER: Initial ACUITY: 2 days PAIN SCALE: 8/10 LOCATION: cranial TECHNIQUE: Multiple contiguous axial images were obtained of the head. Using automated exposure control and adj ustment of the mA and/or kV according to patient size, radiation dose was kept as low as reasonably a chievable to obtain optimal diagnostic quality images. DICOM format image data is available electro nically for review and comparison. FINDINGS: CEREBRUM: The ventricles are normal for age. No evidence of midline shift, mass lesion, hemorrhage or acute in farction. No extra-axial fluid collections are seen. POSTERIOR FOSSA: The cerebellum and brainstem are intact. The 4th ventricle is midline. The cerebellopontine angle i s unremarkable. EXTRACRANIAL: Bimaxillary mucoperiosteal thickening noted. SKULL: The calvaria is intact. No evidence of skull fracture. CONCLUSION: No bleed or other acute intracranial abnormality. Bilateral maxillary sinus disease. Rudy Shaw MD on April 30, 2017 at 12:37 Board Certified Radiologist. This report was verified electronically.
[2017-04-30] MEDS ORDERED: IOHEXOL 350 MG/ML 10 ML VIAL (for RAD DIAG) IVCONTRAST ONE (12:44)
--- NOTE | 2017-04-30 12:47 | RADRPT ---
EXAM DATE/TIME: 04/30/2017 12:18 [facility] COMPARISON: No previous studies available for comparison. INDICATIONS : Fall RADIATION DOSE: 36.63 CTDIvol (mGy) MEDICAL HISTORY : Cardiovascular disease. Sleep apnea. TIA,MRSA 2012 SURGICAL HISTORY : Cholecystectomy. Back. ENCOUNTER: Initial ACUITY: 1 day PAIN SCALE: 6/10 LOCATION: neck TECHNIQUE: Volumetric scanning of the cervical spine was performed. Multiplanar reconstructions in the sagittal, coronal and oblique axial planes were performed. Using automated exposure control and adjustment o f the mA and/or kV according to patient size, radiation dose was kept as low as reasonably achievable to obtain optimal diagnostic quality images. DICOM format image data is available electronically f or review and comparison. FINDINGS: VERTEBRAE: Normal vertebral body height. Mild intervertebral disc space narrowing at the C5-6 level. ALIGNMENT: No evidence of subluxation. C2-C3: The bony spinal canal is normal in size. No evidence of disc bulge or herniation. The neural forami na are bilaterally patent. C3-C4: The bony spinal canal is normal in size. No evidence of disc bulge or herniation. The neural forami na are bilaterally patent. C4-C5: The bony spinal canal is normal in size. No evidence of disc bulge or herniation. The neural forami na are bilaterally patent. C5-C6: The bony spinal canal is normal in size. No evidence of disc bulge or herniation. The right neural f oramen is slightly narrowed secondary to an uncovertebral osteophyte and hypertrophied facet joint. C6-C7: The bony spinal canal is normal in size. No evidence of disc bulge or herniation. The neural forami na are bilaterally patent. C7-T1: The bony spinal canal is normal in size. No evidence of disc bulge or herniation. The neural forami na are bilaterally patent. CONCLUSION: Normal examination. No acute fracture is seen Yonis Pang MD on April 30, 2017 at 12:45 Board Certified Radiologist. This report was verified electronically.
--- NOTE | 2017-04-30 12:50 | RADRPT ---
EXAM DATE/TIME: 04/30/2017 12:21 [facility] COMPARISON: No previous studies available for comparison. INDICATIONS : Trauma; fall IV CONTRAST: 100 cc Omnipaque 350 (iohexol) IV ; Cumulative dose for multiple exams. ORAL CONTRAST: No oral contrast ingested. RADIATION DOSE: 10.13 CTDIvol (mGy) ; Combined studies - Thorax/Abdomen/Pelvis MEDICAL HISTORY : None SURGICAL HISTORY : Cholecystectomy. back ENCOUNTER: Initial ACUITY: 1 day PAIN SCALE: 5/10 LOCATION: Bilateral abdomen. TECHNIQUE: Volumetric scanning of the abdomen and pelvis was performed. Using automated exposure control and ad justment of the mA and/or kV according to patient size, radiation dose was kept as low as reasonably achievable to obtain optimal diagnostic quality images. DICOM format image data is available electro nically for review and comparison. FINDINGS: LOWER LUNGS: The visualized lower lungs are clear. LIVER: Homogeneous density with a 1 cm hyperdense lesion in the dome of liver consistent with a hemangioma. There is no dilation of the biliary tree. Cholecystectomy clips. SPLEEN: Normal size without lesion. PANCREAS: Within normal limits. KIDNEYS: Normal in size and shape. There is no mass, stone or hydronephrosis. ADRENAL GLANDS: Within normal limits. VASCULAR: There is no aortic aneurysm. BOWEL/MESENTERY: The stomach, small bowel, and colon demonstrate no acute abnormality. There is no free intraperitone al air or fluid. ABDOMINAL WALL: Within normal limits. RETROPERITONEUM: There is no lymphadenopathy. BLADDER: No wall thickening or mass. REPRODUCTIVE: Within normal limits. INGUINAL: There is no lymphadenopathy or hernia. MUSCULOSKELETAL: Within normal limits for patient age. CONCLUSION: Normal examination in a patient status post cholecystectomy. No etiology for abdominal pain is identi gabriel Pang MD on April 30, 2017 at 12:47 Board Certified Radiologist. This report was verified electronically.
--- NOTE | 2017-04-30 12:51 | RADRPT ---
EXAM DATE/TIME: 04/30/2017 12:21 [facility] COMPARISON: No previous studies available for comparison. INDICATIONS : Trauma; fall IV CONTRAST: 100 cc Omnipaque 350 (iohexol) IV ; Cumulative dose for multiple exams. RADIATION DOSE: 10.13 CTDIvol (mGy) ; Combined studies - Thorax/Abdomen/Pelvis MEDICAL HISTORY : None SURGICAL HISTORY : Cholecystectomy. back ENCOUNTER: Initial ACUITY: 1 day PAIN SCALE: 5/10 LOCATION: Bilateral chest TECHNIQUE: Volumetric scanning of the chest was performed. Using automated exposure control and adjustment of t he mA and/or kV according to patient size, radiation dose was kept as low as reasonably achievable to obtain optimal diagnostic quality images. DICOM format image data is available electronically for review and comparison. Follow-up recommendations for detected pulmonary nodules are based at a minimum on nodule size and pa tient risk factors according to Fleischner Society Guidelines. FINDINGS: LUNGS: There is no consolidation or pneumothorax. No concerning pulmonary nodule is visualized. PLEURA: There is no pleural thickening or pleural effusion. MEDIASTINUM: The heart and great vessels demonstrate no acute abnormality. There is no mediastinal or hilar lymph adenopathy. AXILLAE: Within normal limits. No lymphadenopathy. SKELETAL: No fracture or other acute abnormality seen of the visualized osseous structures. MISCELLANEOUS: The visualized upper abdominal organs demonstrate no acute abnormality. CONCLUSION: Negative CT of the chest. Rudy Shaw MD on April 30, 2017 at 12:48 Board Certified Radiologist. This report was verified electronically.
[2017-04-30] MEDS ORDERED: METF500T PO (13:10)
[2017-04-30] MEDS ORDERED: KETOROLAC TROMETHAMINE 30 MG/ML (IVP) VIAL IVP ONE (13:15)
[2017-04-30] MEDS ORDERED: DIAZ5 PO (13:35)
== END 2017-04-30 14:38 | disposition home or self-care (01) ==
LOC: NEPD 10:41
DX: S06.0X0A Concussion without loss of consciousness, initial encounter (principal); R73.9 Hyperglycemia, unspecified; R11.10 Vomiting, unspecified; E11.65 Type 2 diabetes mellitus with hyperglycemia; I10 Essential (primary) hypertension; G47.30 Sleep apnea, unspecified; E07.9 Disorder of thyroid, unspecified; W18.00XA Striking against unspecified object with subsequent fall, initial encounter
CPT/HCPCS: 70450; 71260; 72125; 73030; 73502; 74177; 80048; 85025; 85610; 85730; 96372; 96374; 96375; 99285; J1815; J1885; J2405; J7030; Q9967

== ENCOUNTER 2017-06-26 08:41 | Emergency (ER) | payer OTHER ==
[~2017-06-26] VITALS: Ht 180.3 cm; Wt 98.5 kg
[~2017-06-26 08:41] MED LIST changes: +DIAZ5 PO; +METF500T PO; +MULTTAB67 PO; -NOVALOG; -PERC7.5T13 PO; +VITA250C3 CHEW
[2017-06-26 08:43] VITALS: BP 165/83; PULSE 63; RESP 16; TEMP 98; O2SAT 96
[2017-06-26] MEDS ORDERED: KETOROLAC TROMETHAMINE 60 MG/2 ML (IM) VIAL IM ONE (09:15)
--- NOTE | 2017-06-26 09:31 | RADRPT ---
EXAM DATE/TIME: 06/26/2017 09:16 [facility] COMPARISON: No previous studies available for comparison. INDICATIONS : Left wrist pain and swelling, no trauma. MEDICAL HISTORY : Diabetes mellitus type II. SURGICAL HISTORY : Carpal tunnel syndrome. ENCOUNTER: Initial ACUITY: 2 days PAIN SCORE: 9/10 LOCATION: Left medial wrist. FINDINGS: No fracture seen. The bones and joints are normally aligned. There is minimal hypertrophic change at the proximal medial aspect of the lunate at the inferior aspect of the triquetral lunate joint space. There is subtle minimal calcification of the TFCC region. CONCLUSION: Mild chronic change as described above. An acute abnormality is not seen. Rudy Randall MD on June 26, 2017 at 9:28 Board Certified Radiologist. This report was verified electronically.
--- NOTE | 2017-06-26 09:32 | PD ---
HPI Chief Complaint: Injury Time Seen by Provider: 09:08 Travel History International Travel<30 days: No Contact w/Intl Traveler<30days: No Traveled to known affect area: No History of Present Illness HPI 56-year-old female here with left wrist pain. Onset yesterday evening. Does not recall specific injury. Reports prior to going to bed she had mild/ moderate left wrist pain woke up at 3 AM with increased left wrist pain and swelling. Denies paresthesia or weakness of the extremity. Flexion and extension of the wrist and fingers causes pain. Pain is relieved with rest. Denies fever or chills. PFSH Past Medical History Cancer: No Cardiovascular Problems: No Chest Pain: Yes Cerebrovascular Accident: Yes (TIA) Diabetes: Yes (TYPE 2) Patient Takes Glucophage: No Diminished Hearing: No Endocrine: Yes Genitourinary: No Headaches: Yes Hypertension: Yes Musculoskeletal: Yes Neurologic: No Psychiatric: No Reproductive: No Respiratory: No Immunizations Current: Yes Sleep Apnea: Yes Thyroid Disease: Yes Tetanus Vaccination: > 5 Years Influenza Vaccination: No ?: Not Menopausal: Yes Past Surgical History Abdominal Surgery: Yes (gallbladder out last year) Cholecystectomy: Yes Oral Surgery: Yes (T&A) Pacemaker: No Thoracic Surgery: Yes (lower back) Tonsillectomy: Yes (& adenoids) Other Surgery: Yes (L4-L5, bilat carpal tunnel SX) Social History Alcohol Use: No Tobacco Use: No Substance Use: No Allergies-Medications (Allergen,Severity, Reaction): Coded Allergies: morphine (Verified Allergy, Severe, Hives, 06/26/17) *MDRO Multi-Drug Resistant Organism (Verified Allergy, Unknown, 06/26/17) Uncoded Allergies: ADHEVIE "SURGICAL " TAPE (Allergy, Intermediate, RASH,ITCHING,SKIN IRRITATION, 06/07/12) Reported Meds & Prescriptions Reported Meds & Active Scripts Active No Active Prescriptions or Reported Medications Review of Systems Except as stated in HPI: all other systems reviewed are Neg General / Constitutional: No: Fever Eyes: No: Visual changes HENT: No: Headaches Cardiovascular: No: Chest Pain or Discomfort Respiratory: No: Shortness of Breath Gastrointestinal: No: Abdominal Pain Genitourinary: No: Dysuria Physical Exam Narrative GENERAL: Alert female. Appears uncomfortable. SKIN: Warm and dry. HEAD: Normocephalic. EYES: No scleral icterus. No injection or drainage. NECK: Supple, trachea midline. CARDIOVASCULAR: Regular rate and rhythm RESPIRATORY: Breath sounds equal bilaterally. No accessory muscle use. GASTROINTESTINAL: Abdomen soft, non-tender, nondistended. MUSCULOSKELETAL: No cyanosis. Left upper extremity: Tenderness and mild swelling to the lateral aspect of the wrist. No deformity. Limited flexion and extension due to pain. 2+ radial/ulnar pulses. Normal sensation in the fingers. Brisk cap refill. Data Data Last Documented VS Vital Signs Date Time Temp Pulse Resp B/P (MAP) Pulse Ox O2 Delivery O2 Flow Rate FiO2 06/26/17 08:43 98.0 63 16 165/83 (110) 96 Orders Orders Wrist, Complete (Asq2xhw) (06/26/17 ) Ketorolac Inj (Toradol Inj) (06/26/17 09:15) Splint Or Brace Apply/Monitor (06/26/17 09:37) MDM Medical Decision Making Medical Screen Exam Complete: Yes Emergency Medical Condition: Yes Interpretation(s) Left wrist x-rays negative for acute abnormality Differential Diagnosis Tendinitis, wrist sprain, fracture Narrative Course 56-year-old female with nontraumatic left wrist pain times one day. X-ray is negative for fracture. On exam she has mild swelling to the lateral aspect. No evidence of infection. The extremity is neurovascularly intact. This is consistent with tendinitis. Diagnosis Primary Impression: Left wrist tendinitis Referrals: Primary Care Physician Additional Instructions: Wear the splint for comfort and support. Take pain medication as needed for pain. Follow-up with her primary doctor. Scripts Ibuprofen (Ibuprofen) 800 Mg Tab 800 MG PO Q6HR Y for PAIN, #40 TAB 0 Refills Prov: Marlen Alves 06/26/17 Disposition: 01 DISCHARGE HOME Condition: Stable Marlen Alves Jun 26, 2017 09:32
[2017-06-26] MEDS ORDERED: IBUP1TAB7 PO (09:48)
[2017-06-26] MEDS ORDERED: DEXAMETHASONE SOD PHOS 4 MG/ML VIAL IM ONE (10:00)
[2017-06-26 10:03] VITALS: RESP 18
== END 2017-06-26 10:13 | disposition home or self-care (01) ==
LOC: PHED 08:41
DX: M77.9 Enthesopathy, unspecified (principal); R22.32 Localized swelling, mass and lump, left upper limb; E11.9 Type 2 diabetes mellitus without complications; I10 Essential (primary) hypertension; E07.9 Disorder of thyroid, unspecified; G47.30 Sleep apnea, unspecified; Z86.73 Personal history of transient ischemic attack (TIA), and cerebral infarction without residual deficits; Z87.39 Personal history of other diseases of the musculoskeletal system and connective tissue
CPT/HCPCS: 73110; 96372; 99284; J1100; J1885; L3908

== ENCOUNTER 2017-08-10 11:30 | Emergency (ER) | payer OTHER ==
[~2017-08-10] VITALS: Ht 180.3 cm; Wt 95.0 kg
[~2017-08-10 11:30] MED LIST changes: -DIAZ5 PO; +IBUP1TAB7 PO; -METF500T PO; -MULTTAB67 PO; -VITA250C3 CHEW
[2017-08-10] MEDS ORDERED: IOHEXOL 350 MG/ML 10 ML VIAL (for RAD DIAG) IVCONTRAST ONE (11:31)
[2017-08-10 11:33] VITALS: BP 155/98; PULSE 78; RESP 16; TEMP 97.8; O2SAT 96
[2017-08-10] MEDS ORDERED: ZITH250T PO (12:25)
[2017-08-10] MEDS ORDERED: SODIUM CHLOR 0.9% 1000 ML INJ 1,000 ML IV SCH (12:43)
[2017-08-10] MEDS ORDERED: LIDOCAINE VISCOUS 2% SOLN 15 ML UDC PO ONE (12:45)
[2017-08-10] MEDS ORDERED: SODIUM CHLORIDE 0.9% FLUSH 10 ML FLUSH IVF PRN (12:45)
[2017-08-10] MEDS ORDERED: BENZONATATE 100 MG CAP PO ONE (12:45)
[2017-08-10] MEDS ORDERED: DEXAMETHASONE SOD PHOS 4 MG/ML VIAL IM ONE (12:45)
[2017-08-10] MEDS ORDERED: guaiFENesin/CODEINE SYRUP 200 MG/20 MG/10 ML CUP PO ONE (12:45)
[2017-08-10] MEDS ORDERED: ALUMINUM/MAGNESIUM/SIMETH 30 ML CUP PO ONE (12:45)
[2017-08-10] MEDS ORDERED: RESP: ALBUTEROL 2.5 MG/IPRATROPIUM 0.5 MG NEB (SCH) INH ONE (12:45)
[2017-08-10 13:09] VITALS: O2SAT 97
[2017-08-10 13:15] VITALS: O2SAT 97
[2017-08-10 14:01] LABS: AUTOMATED NEUTROPHIL # 6.7 TH/MM3 (1.8-7.7); BASOPHIL % 0.1 % (0.0-2.0); EOSINOPHIL % 0.2 % (0.0-4.0); HEMATOCRIT 41.2 % (35.0-46.0); HEMOGLOBIN 14.1 GM/DL (11.6-15.3); LYMPH % 18.1 % (9.0-44.0); LYMPHOCYTE # 1.6 TH/MM3 (1.0-4.8); MEAN CORPUSCULAR HEMOGLOBIN 27.7 PG (27.0-34.0); MEAN CORPUSCULAR HGB CONC 34.2 % (32.0-36.0); MEAN PLATELET VOLUME 8.3 FL (7.0-11.0); MONO % 3.2 % (0.0-8.0); MONOCYTE # 0.3 TH/MM3 (0-0.9); NEUT % 78.4 % (16.0-70.0); PLATELET COUNT 292 TH/MM3 (150-450); RED BLOOD COUNT 5.08 MIL/MM3 (4.00-5.30); RED CELL DISTRIBUTION WIDTH 13.6 % (11.6-17.2); WHITE BLOOD COUNT 8.6 TH/MM3 (4.0-11.0)
--- NOTE | 2017-08-10 14:02 | RADRPT ---
EXAM DATE/TIME: 08/10/2017 13:35 [facility] COMPARISON: CHEST SINGLE AP, November 30, 2016, 9:10. INDICATIONS : Coughing and flu like symptoms for 4 weeks MEDICAL HISTORY : None. SURGICAL HISTORY : None. ENCOUNTER: Initial ACUITY: 1 month PAIN SCORE: 0/10 LOCATION: Bilateral chest FINDINGS: A single view of the chest demonstrates the lungs to be symmetrically aerated without evidence of mas s, infiltrate or effusion. The cardiomediastinal contours are unremarkable. Osseous structures are intact. CONCLUSION: 1. No acute cardiopulmonary disease. Immanuel Duke MD on August 10, 2017 at 14:00 Board Certified Radiologist. This report was verified electronically.
--- NOTE | 2017-08-10 14:03 | PD ---
HPI Chief Complaint: Respiratory Symptoms Time Seen by Provider: 12:24 Travel History International Travel<30 days: No Contact w/Intl Traveler<30days: No Traveled to known affect area: No History of Present Illness HPI 56-year-old female arrives due to cough for about 4 weeks. She is following with Dr. Hensley who has given her Tessalon Perles as well as antibiotics 4. She received a steroid injection 3 days ago. She has been taking guaifenesin with codeine as well. She reports minimal improvement. Minimal hemoptysis reported today. Dyspnea is reported as well. She denies GERD. She denies postnasal drip. No similar prior episodes. PFSH Past Medical History Cancer: No Cardiovascular Problems: No Chest Pain: Yes Cerebrovascular Accident: Yes (TIA) Diabetes: Yes (TYPE 2) Patient Takes Glucophage: No Diminished Hearing: No Endocrine: Yes Genitourinary: No Headaches: Yes Hypertension: Yes Musculoskeletal: Yes Neurologic: No Psychiatric: No Reproductive: No Respiratory: No Immunizations Current: Yes Sleep Apnea: Yes Thyroid Disease: Yes Menopausal: Yes Past Surgical History Abdominal Surgery: Yes (gallbladder out last year) Cholecystectomy: Yes Oral Surgery: Yes (T&A) Pacemaker: No Thoracic Surgery: Yes (lower back) Tonsillectomy: Yes (& adenoids) Other Surgery: Yes (L4-L5, bilat carpal tunnel SX) Social History Alcohol Use: No Tobacco Use: No Substance Use: No Allergies-Medications (Allergen,Severity, Reaction): Coded Allergies: morphine (Verified Allergy, Severe, Hives, 08/10/17) *MDRO Multi-Drug Resistant Organism (Verified Allergy, Unknown, 08/10/17) Uncoded Allergies: ADHEVIE "SURGICAL " TAPE (Allergy, Intermediate, RASH,ITCHING,SKIN IRRITATION, 06/07/12) Reported Meds & Prescriptions Reported Meds & Active Scripts Active Tessalon Perles (Benzonatate) 100 Mg Cap 100 Mg PO TID PRN Reported Zithromax (Azithromycin) 250 Mg Tab 250 Mg PO DAILY Review of Systems Except as stated in HPI: all other systems reviewed are Neg General / Constitutional: No: Fever Physical Exam Narrative GENERAL: 56-year-old female pleasant frequent cough SKIN: Warm and dry. HEAD: Atraumatic. Normocephalic. EYES: Pupils equal and round. No scleral icterus. No injection or drainage. ENT: No nasal bleeding or discharge. Mucous membranes pink and moist. Posterior oropharynx is minimally erythematous without exudate or asymmetry hypertrophy or deviation of soft palate. NECK: Trachea midline. No JVD. CARDIOVASCULAR: Regular rate and rhythm. RESPIRATORY: No accessory muscle use. Clear to auscultation. Breath sounds equal bilaterally. GASTROINTESTINAL: Abdomen soft, non-tender, nondistended. Hepatic and splenic margins not palpable. MUSCULOSKELETAL: Extremities without clubbing, cyanosis, or edema. No obvious deformities. NEUROLOGICAL: Awake and alert. No obvious cranial nerve deficits. Motor grossly within normal limits. Five out of 5 muscle strength in the arms and legs. Normal speech. PSYCHIATRIC: Appropriate mood and affect; insight and judgment normal. Data Data Last Documented VS Vital Signs Date Time Temp Pulse Resp B/P (MAP) Pulse Ox O2 Delivery O2 Flow Rate FiO2 08/10/17 16:01 08/10/17 15:01 97.8 68 16 97 Room Air 08/10/17 13:09 21 Vital signs reviewed Orders Orders Complete Blood Count With Diff (08/10/17 12:43) Basic Metabolic Panel (Bmp) (08/10/17 12:43) B-Type Natriuretic Peptide (08/10/17 12:43) Ckmb (Isoenzyme) Profile (08/10/17 12:43) Troponin I (08/10/17 12:43) Influenzae A/B Antigen (08/10/17 12:43) Iv Access Insert/Monitor (08/10/17 12:43) Ecg Monitoring (08/10/17 12:43) Oximetry (08/10/17 12:43) Oxygen Administration (08/10/17 12:43) Chest, Single Ap (08/10/17 12:43) Ct Pulmonary Angiogram (08/10/17 12:43) Sodium Chloride 0.9% Flush (Ns Flush) (08/10/17 12:45) Albuterol-Ipratropium Neb (Duoneb Neb) (08/10/17 12:45) Dexamethasone Inj (Decadron Inj) (08/10/17 12:45) Benzonatate (Tessalon) (08/10/17 12:45) Guaifen-Cod 200-20 Mg/10ml Liq (Robituss (2/15/18 12:45) Sodium Chlor 0.9% 1000 Ml Inj (Ns 1000 M (08/10/17 12:43) Al-Mag Hy-Si 40-40-4 Mg/Ml Liq (Mag-Al P (08/10/17 12:45) Lidocaine 2% Viscous (Xylocaine 2% Visco (08/10/17 12:45) Iohexol 350 Inj (Omnipaque 350 Inj) (08/10/17 11:31) Insulin Human Regular Inj (Novolin R Inj (08/10/17 14:45) Sodium Chlor 0.9% 1000 Ml Inj (Ns 1000 M (08/10/17 14:45) Blood Glucose (08/10/17 14:51) Blood Glucose (08/10/17 15:51) Ed Discharge Order (08/10/17 15:58) Labs Laboratory Tests Test 08/10/17 13:09 White Blood Count 8.6 TH/MM3 Red Blood Count 5.08 MIL/MM3 Hemoglobin 14.1 GM/DL Hematocrit 41.2 % Mean Corpuscular Volume 81.0 FL Mean Corpuscular Hemoglobin 27.7 PG Mean Corpuscular Hemoglobin Concent 34.2 % Red Cell Distribution Width 13.6 % Platelet Count 292 TH/MM3 Mean Platelet Volume 8.3 FL Neutrophils (%) (Auto) 78.4 % Lymphocytes (%) (Auto) 18.1 % Monocytes (%) (Auto) 3.2 % Eosinophils (%) (Auto) 0.2 % Basophils (%) (Auto) 0.1 % Neutrophils # (Auto) 6.7 TH/MM3 Lymphocytes # (Auto) 1.6 TH/MM3 Monocytes # (Auto) 0.3 TH/MM3 Eosinophils # (Auto) 0.0 TH/MM3 Basophils # (Auto) 0.0 TH/MM3 CBC Comment DIFF FINAL Differential Comment Blood Urea Nitrogen 15 MG/DL Creatinine 0.82 MG/DL Random Glucose 473 MG/DL Calcium Level 8.8 MG/DL Sodium Level 132 MEQ/L Potassium Level 4.8 MEQ/L Chloride Level 97 MEQ/L Carbon Dioxide Level 29.4 MEQ/L Anion Gap 6 MEQ/L Estimat Glomerular Filtration Rate 72 ML/MIN Total Creatine Kinase 57 U/L Troponin I LESS THAN 0.02 NG/ML B-Type Natriuretic Peptide 36 PG/ML MDM Medical Decision Making Medical Screen Exam Complete: Yes Emergency Medical Condition: Yes Medical Record Reviewed: Yes Differential Diagnosis NSTEMI, unstable angina, coronary vasospasm, PE, PTX, aortic dissection, pericarditis, myocarditis, endocarditis, PNA, esophageal disease, aneurysm, musculoskeletal etiologies, anxiety, cocaine/sympathomimetic abuse Narrative Course CBC & BMP Diagram 08/10/17 13:09 Calcium Level 8.8 Last Impressions Chest X-Ray 08/10/17 1243 Signed Impressions: Service Date/Time: July 13:35 - CONCLUSION: 1. No acute cardiopulmonary disease. Immanuel Duke MD CT Angiography 08/10/17 1243 Signed Impressions: Service Date/Time: July 13:47 - CONCLUSION: No acute disease. No evidence of pulmonary embolism. Michelet Emerson MD Hyperglycemia is considered most probably secondary to steroid use. Case was discussed with Dr. Hensley in some detail. Patient unfortunately is getting minimal if any relief from multiple antitussives. She is coughing on occasion here in the ER. We discussed further diagnostic interventions may be required if symptoms don't improve potentially including a bronchoscopy. Patient received 10 units insulin and a liter saline and the blood glucose decreased to acceptable range. Diagnosis Primary Impression: Cough Additional Impressions: Hemoptysis Hyperglycemia Referrals: Lan Hensley MD Med/Other Pt SpecificInfo: Prescription(s) given Scripts Benzonatate (Tessalon Perles) 100 Mg Cap 100 MG PO TID Y for COUGH, #20 CAP 0 Refills Prov: Kevin Valentin MD 08/10/17 Disposition: 01 DISCHARGE HOME Condition: Stable Kevin Valentin MD Aug 10, 2017 14:03
--- NOTE | 2017-08-10 14:17 | RADRPT ---
EXAM DATE/TIME: 08/10/2017 13:47 [facility] COMPARISON: No previous studies available for comparison. INDICATIONS : Hemopophsis,chest pains. IV CONTRAST: 72 cc Omnipaque 350 (iohexol) IV RADIATION DOSE: 16.27 CTDIvol (mGy) MEDICAL HISTORY : Cardiovascular disease. Hypertension. Diabetes mellitus type 2. SURGICAL HISTORY : Cholecystectomy. ENCOUNTER: Initial ACUITY: 1 day PAIN SCALE: 7/10 LOCATION: chest TECHNIQUE: Volumetric scanning of the chest was performed using a pulmonary embolism protocol MIP images were re constructed. Using automated exposure control and adjustment of the mA and/or kV according to patien t size, radiation dose was kept as low as reasonably achievable to obtain optimal diagnostic quality images. DICOM format image data is available electronically for review and comparison. Follow-up recommendations for detected pulmonary nodules are based at a minimum on nodule size and pa tient risk factors according to Fleischner Society Guidelines. FINDINGS: PULMONARY ARTERIES: No filling defects are seen in the pulmonary arteries through the segmental level. LUNGS: There is no consolidation or pneumothorax . No concerning pulmonary nodule is visualized. PLEURAE: There is no pleural thickening or pleural effusion. MEDIASTINUM: There is good visualization of the great vessels of the middle mediastinum. No evidence of mediastin al or hilar adenopathy/mass. MUSCULOSKELETAL: Within normal limits for patient age. MISCELLANEOUS: The visualized upper abdominal organs demonstrate no acute abnormality. CONCLUSION: No acute disease. No evidence of pulmonary embolism. Michelet Emerson MD on August 10, 2017 at 14:14 Board Certified Radiologist. This report was verified electronically.
[2017-08-10 14:20] LABS: BICARBONATE 29.4 MEQ/L (21.0-32.0); BLOOD UREA NITROGEN 15 MG/DL (7-18); CALCIUM 8.8 MG/DL (8.5-10.1); CHLORIDE 97 MEQ/L (98-107); CREATININE 0.82 MG/DL (0.50-1.00); GLOMERULAR FILTRATION RATE 72 ML/MIN (>89); SODIUM (NA) 132 MEQ/L (136-145); TROPONIN I LESS THAN 0.02 NG/ML (0.02-0.05)
[2017-08-10 14:24] LABS: GLUCOSE,RANDOM 473 MG/DL (74-106)
[2017-08-10] MEDS ORDERED: INSULIN HUMAN REGULAR 1,000 UNITS/10 ML VIAL IV PUSH ONE (14:45)
[2017-08-10] MEDS ORDERED: SODIUM CHLOR 0.9% 1000 ML INJ 1,000 ML IV ONE (14:45)
[2017-08-10] MEDS ORDERED: BENZ100 PO (14:51)
[2017-08-10 15:01] VITALS: BP 117/59; PULSE 68; RESP 16; TEMP 97.8; O2SAT 97
== END 2017-08-10 16:19 | disposition home or self-care (01) ==
LOC: NEPE 11:30
DX: R05 Cough (principal); R04.2 Hemoptysis; R06.00 Dyspnea, unspecified; E11.65 Type 2 diabetes mellitus with hyperglycemia; I10 Essential (primary) hypertension; Z86.73 Personal history of transient ischemic attack (TIA), and cerebral infarction without residual deficits
CPT/HCPCS: 71045; 71275; 80048; 82550; 83880; 84484; 85025; 87804; 94664; 96361; 96372; 96374; 99285; J1100; J1815; J7030; Q9967

== ENCOUNTER → 2017-09-12 | Day surgery (SDC) | payer OTHER ==
[~2017-09-12] MED LIST changes: +APREPITANT 40 MG CAP ONE; +BACITRACIN IM FOR SOLN 50,000 UNIT VIAL ONE; +BENZ100 PO; +BUPIVACAINE HCL PF 0.75% 30 ML VIAL ONE; +BUPIVACAINE/EPINEPHRINE 0.25% 50 ML VIAL ONE; -IBUP1TAB7 PO; +LACTATED RINGER'S 1000 ML INJ 1,000 ML ONE; +MIDAZOLAM HCL 2 MG/2 ML VIAL ONE; +MIDAZOLAM HCL 5 MG/ML VIAL (1 ML) ONE; +ONDANSETRON HCL 4 MG/2 ML VIAL IV PUSH ONE; +PROPOFOL 200 MG/20 ML AMP IV ONE; +SODIUM CHLORIDE 0.9% INJ 10 ML ONE; +ZITH250T PO; +ceFAZolin INJ 1,000 MG VIAL ONE
--- NOTE | 2017-09-12 11:51 | TN ---
cc: Gamaliel Lovelace MD DATE OF SURGERY: 09/12/2017 PREOPERATIVE DIAGNOSES: 1. Right shoulder rotator cuff tear. 2. Acromioclavicular degenerative arthritis. 3. Right biceps long head chronic rupture. POSTOPERATIVE DIAGNOSES: 1. Right shoulder, 2 tendon rotator cuff tear, retracted with high grade subacromial impingement. 2. Right shoulder acromioclavicular degenerative arthritis with severe subclavicular impingement. 3. Chronic long head biceps tendon rupture retracted distally deep into the arm. PROCEDURE: 1. Open right shoulder rotator cuff repair including acromioplasty. 2. Right shoulder partial distal clavicle excision; approximately 1 cm. SURGEON: Gamaliel Lovelace MD ANESTHESIA: General via laryngeal mask augmented by interscalene block as well as local infiltration. ESTIMATED BLOOD LOSS: Minimal. FLUID REPLACEMENT: 500 mL of crystalloid. SPECIMENS: No specimens were sent. IMPLANTS: Consisted of a single Arthrex 5.5 mm Bio-Corkscrew with 4 sutures and an additional #3 FiberWire Arthrex suture. COMPLICATIONS: There were no intraoperative complications. COUNTS: All counts were correct. DRAINS: No drains were utilized. INDICATIONS FOR PROCEDURE: Mrs. Rapp is a 56-year-old woman who has a known right shoulder rotator cuff tear and biceps tendon rupture as a result of a slip and fall at work on 04/28/2017. She had a complication of the development of adhesive capsulitis preoperatively and underwent a course of physical therapy to improve heractive and passive range of motion. She continued to have problems with significant pain as well as weakness in the shoulder and was being taken to the operating room for rotator cuff repair. She will potentially require further therapy postoperatively if she develops significant stiffness or if she has trouble starting the strengthening portion of the program after the healing is done. She was aware of the risks, benefits, potential complications and limitations of the procedure and full informed consent had been obtained. Please also note that we do have permission from her compensation carrier for the procedure. We were aware that she had an open shoulder stabilization surgery in 1980 that was successful. DESCRIPTION OF PROCEDURE: After the patient was appropriately identified in the holding area, she correctly marked her right shoulder and I had initialed it as well. She was then given an interscalene block by anesthesia with the use of ultrasound and a very good block was set up. She was then also given 1 gram of intravenous Ancef as prophylactic antibiotic. At this time she was taken to the Operating Suite, where she was placed under general laryngeal mask anesthetic by Dr. Sr and then she was placed well padded in a beach chair position. Her right shoulder and her right arm were prepped and draped free including an impervious stockinette from the hand all the way up to the mid upper arm region. A timeout was now held confirming the right shoulder was the appropriate surgical site. The team was in agreement and the case was now begun. The passive range of motion of her right shoulder was now evaluated and her movement was full. There were no limitations in her passive movement in any plane. At this time, a 5 cm incision was made over the anterolateral aspect of the shoulder, centering over the acromioclavicular joint. Please note that this incision was both proximal and lateral to the previous deltopectoral incision that had been done for a procedure that had been done many years prior, for shoulder instability. The subcutaneous tissue was divided. Hemostasis was achieved with electrocautery. The acromioclavicular joint was palpable and identified and then subperiosteally dissected both medially and laterally. The dissection was carried out across the anterolateral edge of the acromion and approximately 1 cm of the deltoid was released in line with its fibers in order to expose the anterior aspect of the subacromial space. Quite high grade subclavicular impingement was appreciated from AC joint arthritis and quite significant subacromial impingement was also appreciated, primarily due to curvature of the acromion and thinning of the subacromial space. At this time a generous acromioplasty was performed with use of an oscillating saw and this significantly relieved the impingement and the distal 1 cm of clavicle was also excised, taking care to spare the posterior acromioclavicular ligaments and the coracoclavicular ligament was never violated. Once the decompressions were both performed the soft tissues were then further resected and the surfaces of the bone were rasped smooth. This then allowed much better inspection of the rotator cuff itself at this time. A thorough bursectomy was performed in order to eliminate the bursal tissue and further decompression was performed and then the rotator cuff was now identified. The greater tuberosity was palpable and was exposed directly through a tear in the rotator cuff at the conjoined portion of the infraspinatus and the supraspinatus. There was retraction of approximately 0.5 to 1 cm in this area. It did not extend into the subscapularis, nor did it extend posteriorly beyond the edge of the infraspinatus. I went ahead and rasped the bone down over the greater tuberosity where it was exposed and then further smoothed it out. Prior to the repair, I thoroughly irrigated the joint and there was no evidence of debris or loosed bodies. No labral tear was seen and there was no remnant of the long head of the biceps seen either in the joint or in the upper portion of the bicipital groove. I passed a clanp down the bicipital groove to the level of the mid arm and still did not encounter the stump. I ava that with this degreee or retraction and the duration of the tear made it in my opinion not worth while to attempt to open the arm distally as it will be unlikely to be repairable anatomically due to retraction and scarring. We had discussed this scenario that if I felt it was not in her best interest that we would not attempt a tenodeis. Attention was now redirected back to the cuff repair. I then placed a single Arthrex 5.5 mm Bio-Corkscrew anchor with 4 sutures in it at this site. A commercial pilot hole was made then the threads were tapped to help improve pull out stength. The anchor was secure. Once this was placed at the site, I went ahead and passed FiberWire sutures through the leading edge of the rotator cuff tear, getting good capture of the supraspinatus, as well as the infraspinatus tendon (medial row). Once these were reapproximated and tied back down to the bone, I felt that there was still some very subtle gaping seen on the lower portion of the repair and elected to close that with #3 FiberWire. I felt that this area was suitable for a [id number] tendon to tendon repair in this area that further reinforced the original bone to tendon repair. Photos were taken sequentially of the repair. Once there was essentially an anatomical closure of the cuff, the shoulder was taken through range of motion. There was no evidence of any significant instability of the cuff itself and the shoulder motion was still very near full. I saw no scar or evidence of prior surgery other than her well healed skin incision.At this time, I irrigated the subacromial space well and debrided a bit more bursal tissue, but no further bony work was required other than some gentle rasping of the deep surface of the acromion and also the cephalad surface of the distal clavicle where there was some bony prominence as well. Please note that a fair amount of bone had been excised prior to doing the rasping. At this time, the deep deltoid was allowed to reapproximate and I was able to repair it with some of the residual FiberWire suture. I got an excellent repair of the upper portion of the deltoid and then I completed the rest of the periosteal closure and deltoid repair with 2-0 Vicryl interrupted sutures. The subcutaneous tissue was then thoroughly irrigated with antibiotic containing saline and closed with 2-0 Vicryl inverted subcutaneous stitches and the skin was then closed with xavier. I went ahead and then infiltrated an additional 20 mL of 0.25% Marcaine with epinephrine subcutaneously as well as some of the subacromial space to augment her pain relief, that will likely be present from the use of her interscalene block. She was then dressed with Xeroform, 4 x 4's, ABDs and foam tape, was placed into a regular sling and then she was awoken from anesthesia and taken to recovery in stable condition. Appropriate postoperative orders have been written. I would anticipate a good recovery based on the findings of surgery. Gamaliel Lovelace MD Electronically Signed Gamaliel Lovelace MD SIS/TL , 11:09 AM , 11:50 AM MTDD
== END | disposition home or self-care (01) ==
LOC: ESDC 07:31
PROVIDERS: ATTEND Orthopaedic Surgery Sports Medicine
DX: S46.011A Strain of muscle(s) and tendon(s) of the rotator cuff of right shoulder, initial encounter (principal); M75.41 Impingement syndrome of right shoulder; M19.011 Primary osteoarthritis, right shoulder; S46.111A Strain of muscle, fascia and tendon of long head of biceps, right arm, initial encounter; W01.0XXA Fall on same level from slipping, tripping and stumbling without subsequent striking against object, initial encounter; Y99.0 Civilian activity done for income or pay
CPT/HCPCS: 00450; 01630; 01991; 23120; 23420; 64417; C1713; J0690; J2250; J2405; J7120; J8501